=== PATIENT | male | born 1945 | race Caucasian/White ===

== ENCOUNTER 2023-07-07 09:44 | Observation (INO) ==
--- NOTE | 2023-06-16 13:41 | PAT Medication Instructions ---
Medication Instructions Date of Service June 16, 2023 Home Medications allopurinol 100 mg tablet 100 mg PO QAM amlodipine 10 mg tablet 10 mg PO QAM aspirin 81 mg capsule 81 mg PO QAM atorvastatin 40 mg tablet 40 mg PO QAM cholecalciferol (vitamin D3) 25 mcg (1,000 unit) capsule (Vitamin D3) 25 mcg PO QAM clopidogrel 75 mg tablet (Plavix) 75 mg PO QAM finasteride 5 mg tablet 5 mg PO QAM metoprolol succinate 25 mg tablet,extended release 24 hr 25 mg PO QAM pantoprazole 40 mg tablet,delayed release 40 mg PO QAM MEDICATION INSTRUCTIONS: ASK your prescriber and surgeon clopidogrel 75 mg tablet (Plavix) 75 mg PO QAM (for spinal anesthesia: will need to hold Plavix/clopidogrel for at least 7 days prior to surgery) aspirin 81 mg capsule 81 mg PO QAM DO NOT take the morning of surgery cholecalciferol (vitamin D3) 25 mcg (1,000 unit) capsule (Vitamin D3) 25 mcg PO QAM Take morning of surgery With a small sip of water, OTHERWISE NOTHING TO EAT OR DRINK AFTER MIDNIGHT: finasteride 5 mg tablet 5 mg PO QAM metoprolol succinate 25 mg tablet,extended release 24 hr 25 mg PO QAM atorvastatin 40 mg tablet 40 mg PO QAM allopurinol 100 mg tablet 100 mg PO QAM amlodipine 10 mg tablet 10 mg PO QAM pantoprazole 40 mg tablet,delayed release 40 mg PO QAM Other Notes If you have any questions please call us at [phone] or [phone] or [phone] or [phone]
--- NOTE | 2023-06-22 08:58 | Anesthesiology Consultation ---
Date of Service June 22, 2023 Assessment & Plan (1) Encounter for pre-operative examination: - AAA imaging 2020 [facility] (pt plans to repeat testing 11/2023 prior to next cardiology appt) and will request [facility] 06/19/23 cardiology pre-operative appointment. - Patient and his expressed concerns after dalia-operative risks were discussed at cardiology appointment 06/19/23. Discussion with anesthesiologist was offered and they expressed interest. Dr. Charlton saw patient and his in PAT and discussed their concerns including medical history and anesthesia bradycardia and hypotension, he advised patient and his that he feels patient is acceptable to proceed with surgery. They indicated appreciation for his consultation and comfort in moving forward with the remaining visit with myself. - difficult IV stick. - medical clearance 06/09/23: "...pre-op clearance for left TKA...medically stable and cleared for surgery..." - anesthesia complications: bradycardia and hypotension during cystoscopy felt to be medication related per cardiology records, slow to wake with most procedures. - cardiology office note 12/22/22: "...follow up of coronary artery disease...feeling well...controlled since last visit. Recently reduced metoprolol succinate due to bradycardia...07/2019 bradycardia (30s) and hypotension post urologic procedure, asymptomatic, felt to be r/t medications administered for the procedure...08/2019 Holter: sinus rhythm, pauses/block, rare PAC and PVC, brief SVT...continues on ASA and Plavix due to the nature of the coronary disease and multiple stents..." - Outpatient joint assessment: Patient is currently scheduled for inpatient pathway. If re-evaluated and patient/surgeon requests outpatient pathway, patient is not recommended candidate for outpatient joint program from anesthesia standpoint. Chart Review Chart Review: Pending: Refer to Additional Notes / Consult section and Patient seen in Pre Admission Testing Teaching & Discussion Pre-Anesthesia Teaching/Discussion Notes: Instructed NPO after midnight before surgery, except medications with 15 cc of water. Medication instructions provided according to the PAT guidelines. History Surgery Operation Date: 07/07/23 10:45 Proposed Procedures p Left Total Knee Arthroplasty - Martín Watson DO Height/Weight Height: 5 ft 7 in Weight: 124.7 kg Allergies Allergy/AdvReac Type Severity Reaction Status Date / Time No Known Allergies Allergy Verified 06/15/23 11:47 Medications Home Medications Medication Instructions Recorded Confirmed Last Taken allopurinol 100 mg tablet 100 mg PO QAM 06/15/23 06/15/23 Unknown amlodipine 10 mg tablet 10 mg PO QAM 06/15/23 06/15/23 Unknown aspirin 81 mg capsule 81 mg PO QAM 06/15/23 06/15/23 Unknown atorvastatin 40 mg tablet 40 mg PO QAM 06/15/23 06/15/23 Unknown cholecalciferol (vitamin D3) 25 25 mcg PO QAM 06/15/23 06/15/23 Unknown mcg (1,000 unit) capsule (Vitamin D3) clopidogrel 75 mg tablet (Plavix) 75 mg PO QAM 06/15/23 06/15/23 Unknown finasteride 5 mg tablet 5 mg PO QAM 06/15/23 06/15/23 Unknown metoprolol succinate 25 mg 25 mg PO QAM 06/15/23 06/15/23 Unknown tablet,extended release 24 hr pantoprazole 40 mg tablet,delayed 40 mg PO QAM 06/15/23 06/15/23 Unknown release Past Medical History Medical History Abdominal aortic aneurysm listed in cardiology records BPH (benign prostatic hyperplasia) Bradycardia follows with [facility] CAD (coronary artery disease) 2018- stents x4 Follows with Dr Willett ([facility]) GERD (gastroesophageal reflux disease) controlled, stable per pt Gout No recent flares Hyperlipidemia Hypertension controlled, stable per pt Macular degeneration of left eye Sleep apnea Non-compliant with CPAP Vertigo occasional, stable per pt and his Patient denies h/o stroke, seizures, heart failure, DM, blood clots/DVTs or blood transfusions. Exercise / Class Metabolic Activity II 4-5 Yardwork/Stairs/Walk up hill (denies chest discomfort, shortness of breath, dizziness or lightheadedness with activities push mowing lawn/walking up hills) Past Family History Family History Other No family history of adverse response to anesthesia Past Surgical History Surgical History History of anesthesia reaction Slow to wake up-denies unanticipated extended intubation or re-intubation, bradycardia and hypotension during cystoscopy History of appendectomy History of cardiac cath 2018- stents x4 ~2021 ([facility])- no stents History of cataract surgery Left History of cholecystectomy History of colonoscopy History of cystoscopy bradycardia and hypotension History of tonsillectomy Past Anesthesia History No Family Hx of Anesthesia Complications and Other (Slow to wake up-denies unanticipated extended intubation or re-intubation, bradycardia and hypotension during cystoscopy) History of PONV No Hx of PONV and No Hx of Motion Sickness Social History Smoking Status: Never smoker Do You Dip or Chew Tobacco: No Hx Alcohol Use: No Hx Substance Use: No substance use type: does not use Review of Systems Patient denies chest pain, shortness of breath, dyspnea on exertion, fever, chills, cough, wheezing, or palpitations. Physical Exam Vital Signs Vitals BP 130/81 P 50 TEMP 97.9 SP02 94% on RA RESP 18 Physical Patient resting comfortably in chair in no acute distress, alert and oriented, responding appropriately throughout visit Full cervical extension range of motion without pain TMD 3.5 finger breadths Mallampati Score 2 Dentition: intact, denies chipped or loose teeth, caps/crowns, implants or bridges Lungs: normal respiratory effort. Good air movement, clear throughout to auscultation, no adventitious breath sounds Cardiac: bradycardia, regular rhythm, no murmurs noted Carotid arteries: negative bruit bilat Lab Results Anesthesia Preop Results Results Anesthesia Widget: WBC 5.73 K/ul (4.8-10.8) 06/22/23 Hgb 14.4 g/dl (14.0-18.0) 06/22/23 Hct 41.5 % (42.0-52.0) L 06/22/23 Plt 187 K/uL (130-400) 06/22/23 PT 10.8 Seconds (9.0-12.0) 06/22/23 PTT 31.7 Seconds (21.0-31.0) H 06/22/23 INR 1.0 (0.9-1.1) 06/22/23 HA1c 6.0 % (4.5-5.6) H 06/22/23 Urine Color Dark Yellow 06/22/23 Urine Appearance Clear (Clear) 06/22/23 Urine pH 5.5 (4.5-7.5) 06/22/23 Urine Specific [place] 1.019 (1.000-1.030) 06/22/23 Urine Protein Trace (Negative) H 06/22/23 Urine Glucose (UA) Negative (Negative) 06/22/23 Urine Ketones Negative (Negative) 06/22/23 Urine Blood Negative (Negative) 06/22/23 Urine Nitrite Negative (Negative) 06/22/23 Urine Bilirubin Negative (Negative) 06/22/23 Urine Urobilinogen Negative (Negative) 06/22/23 Urine Leukocyte Esterase 2+ (Negative) H 06/22/23 Urine WBC (Auto) 10-30 /hpf (0-5) H 06/22/23 Urine RBC (Auto) 0-4 /hpf (0-4) 06/22/23 Urine Hyaline Casts (Auto) 1-5 /lpf (0-5) 06/22/23 Urine Epithelial Cells (Auto) >30 /lpf (0-5) H 06/22/23 Urine Bacteria (Auto) Negative (Negative) 06/22/23 Blood Type O Positive 06/22/23 Antibody Screen NEGATIVE 06/22/23 Testing Laboratory Results 06/03/2023 SODIUM: 136 POTASSIUM: 4.1 CHLORIDE: 106 CO2: 24 BUN: 32 CREATININE: 1.2 GLUCOSE: 107 Electrocardiogram Date: 06/19/23 Marked sinus bradycardia, rate 48 bpm Incomplete RBBB Completed at cardiology office Chest X-Ray Date: 06/22/23 No acute process Eventration of the right hemidiaphragm Echocardiogram Date: 10/18/21 EF 50-55% Mildly dilated LA No regional wall motion abnormalities No significant valvular pathology Stress Test Date: 09/26/21 Lexiscan Cardiolite negative for ischemia Two small fixed defects anteroseptal and inferior wall likely related to artifact EF 41% Pt underwent cardiac catheterization 10/28/21 as noted below Cardiac Catheterization Date: 10/28/21 Left main: no angiographically significant disease LAD: patent stents in the proximal and mid-segment of the vessel and patent stents in the proximal and mid-segment of the diagonal LCx: occluded proximally after the takeoff of an obtuse marginal RCA: 40% proximal calcified lesion, one small PLB has a proximal 80% lesion Patent stents in the left anterior descending and the diagonal RCA proximal 40% RCA-IFR 0.95 thereby signifying no compromise Occluded left circumflex and a proximal 80% lesion of a small posterior lateral branch, unchanged from before Shall up titrate medications and follow the patient in the outpatient setting after an echocardiogram
--- NOTE | 2023-06-23 08:07 | History & Physical Report ---
Date of Service June 23, 2023 date of surgery: 07/07/23 Procedure: Left Total Knee Arthroplasty Surgeon: Martín Watson Assessment & Plan (1) Arthritis of knee, left: Plan: Patient having increased pain in his left knee, he is undergone viscosupplementation and cortisone injection times had numerous rounds with minimal relief pain is now affecting his daily activities including walking standing using stairs. X-rays show advanced degenerative changes to his left knee. This point we will proceed with scheduling for a left total knee arthroplasty, would recommend overnight stay in the hospital with discharge home the following day with home health physical therapy. Will resume Plavix and Aspirin postop, will need cardiac clearance as well as medical clearance from his family physician. He otherwise has no other questions or concerns The risks and benefits have been discussed including, but not limited to, risk of infection, nerve injury, stiffness, loss of motion, failure to improve, etc. Reasonable outcomes and options of treatment were discussed. An explanation of appropriate alternatives to the procedure that may be advantageous were discussed and their risks and benefits, as well as the risks and benefits of not proceeding with treatment. I offered to answer any additional inquiries concerning the treatment involved. All the patient's questions were answered. The patient is agreeable, understanding of the treatment plan and alternatives, and wishes to proceed with the treatment plan. History of Present Illness Chief Complaint: left knee pain Primary Care Provider: Selin Ramirez MD Hank is a 78 year old who complains of left knee pain, presents for pre-op e valuation prior to a left total knee replacement by Dr Watson at [facility]. He complains of pain, decreased range of motion, instability and stiffness. He states that the symptoms have been chronic and non-traumatic. He states that the symptoms occur constantly with intermittent worsening. Currently the patient states that the symptoms are moderate-severe. The pain is described as aching, sharp and throbbing. The symptoms occur continuously. The symptoms are aggravated by ascending stairs, daily activities, first steps while awake walking. Prior NSAIDs include IBU and Aleve. He has been treated with previous cortisone and visco injections in the past without much relief. Allergies Allergy/AdvReac Type Severity Reaction Status Date / Time No Known Allergies Allergy Verified 06/15/23 11:47 Home Medications Medication Instructions Recorded Confirmed Type allopurinol 100 mg tablet 100 mg PO QAM 06/15/23 06/15/23 History amlodipine 10 mg tablet 10 mg PO QA 06/15/23 06/15/23 History aspirin 81 mg capsule 81 mg PO QA 06/15/23 06/15/23 History atorvastatin 40 mg tablet 40 mg PO QAM 06/15/23 06/15/23 History cholecalciferol (vitamin D3) 25 25 mcg PO QAM 06/15/23 06/15/23 History mcg (1,000 unit) capsule (Vitamin D3) clopidogrel 75 mg tablet (Plavix) 75 mg PO QAM 06/15/23 06/15/23 History finasteride 5 mg tablet 5 mg PO QA 06/15/23 06/15/23 History metoprolol succinate 25 mg 25 mg PO QA 06/15/23 06/15/23 History tablet,extended release 24 hr pantoprazole 40 mg tablet,delayed 40 mg PO QA 06/15/23 06/15/23 History release Past Med/Surg History Medical History Abdominal aortic aneurysm listed in cardiology records BPH (benign prostatic hyperplasia) Bradycardia follows with [facility] CAD (coronary artery disease) 2018- stents x4 Follows with Dr Willett ([facility]) GERD (gastroesophageal reflux disease) controlled, stable per pt Gout No recent flares Hyperlipidemia Hypertension controlled, stable per pt Macular degeneration of left eye Sleep apnea Non-compliant with CPAP Vertigo occasional, stable per pt and his Surgical History History of anesthesia reaction Slow to wake up-denies unanticipated extended intubation or re-intubation, bradycardia and hypotension during cystoscopy History of appendectomy History of cardiac cath 2018- stents x4 ~2020 ([facility])- no stents History of cataract surgery Left History of cholecystectomy History of colonoscopy History of cystoscopy bradycardia and hypotension History of tonsillectomy Family History Other No family history of adverse response to anesthesia Social History Smoking Status: Never smoker Second Hand Exposure: No; Do You Dip or Chew Tobacco: No; Hx Alcohol Use: No Hx Substance Use: No Preferred Language: Mongolian Communication Ability: Effective Sweat Box Attendant Required: No Beliefs That Will Affect Care: None Current Living Situation: Spouse Feels Safe at Home: Yes Assistive Devices: Glasses and Hearing Aid - Right Review of Systems Review of Systems: All systems reviewed & are unremarkable except as noted in HPI & below Constitutional: no fever, no chills and no sweats Respiratory: no cough and no dyspnea Cardiovascular: no chest pain, no dyspnea and no orthopnea Gastrointestinal: no abdominal pain, no nausea and no vomiting Musculoskeletal: as per Subjective / HPI Physical Exam Constitutional: WD/WN, vitals as above no acute distress Respiratory: normal respiratory effort, lungs clear to auscultation no respiratory distress, no labored breathing and does not use accessory muscles Cardiovascular: RRR, no murmur, no edema Gastrointestinal (Abdomen): normal bowel sounds, soft, nontender, no hepatosplenomegaly Musculoskeletal: Knee: + knee abnormal to inspection (LEFT KNEE: ), + effusion (+1 effusion), + limited ROM of knee (ROM 0/3/110), + knee ROM with crepitation, + joint line tenderness (medial joint line) and + Benjy's sign positive; no deformity, no skin erythema, no ecchymosis, no valgus laxity, no varus laxity, anterior drawer test negative, Antonio's sign negative and pivot shift test negative Results & Data Results & Data Diagnostic Findings Left Knee X-ray: left knee series confirm advanced degenerative changes to the left knee, greatest medial compartments and patellofemoral joint, showing joint space narrowing, osteophyte formation and subchondral sclerosis. no acute bony pathology noted.
[~2023-07-07 09:44] MED LIST: ACETAMINOPHEN 500 MG TAB PO SCH; BUPIVACAINE 0.5 % 5 MG/1 ML PF 10ML VIAL ONE; CeleBREX 200 MG CAP PO SCH; FAMOTIDINE 20 MG TAB PO SCH; GABAPENTIN 600 MG DOSE PO SCH; LR 500ML BOLUS, THEN 15ML/HR IV SCH; LR 60ML/HR IV SCH; METOCLOPRAMIDE HCL 10 MG TABLET PO SCH; ROPIVACAINE 0.5% 5 MG/ML 30 ML VIAL ONE; ROPIVACAINE 0.5% HCL/PF 150 MG, BUPIVACAINE 0.75% MPF 20 ML, EPINEPHrine 30MG/30ML (OR ... INSTIL SCH; TRANEXAMIC ACID 1,000 MG **IV Intra-op IV SCH; TRANEXAMIC ACID 1,000 MG **IV Pre-op IV SCH
[2023-07-07] MEDS ORDERED: MIDAZOLAM HCL 1 MG/ML 2ML VIAL ONE (10:50)
--- NOTE | 2023-07-07 11:22 | History & Physical Bridge Note ---
Date of Service July 07, 2023 History & Physical Bridge Note I have examined the patient, reviewed the History & Physical and in the interval since the performance of the History & Physical I have noted the following changes of clinical significance: no changes noted
[2023-07-07] MEDS ORDERED: ORTHO JOINT ANESTHETIC ONE (11:59)
[2023-07-07] MEDS ORDERED: PROPOFOL IV EMULSION 10 MG/ML 20 ML VIAL IV ONE ×3 (13:02→13:54)
[2023-07-07] MEDS ORDERED: ONDANSETRON INJ 2 MG/ML 2 ML VIAL ONE (13:02)
[2023-07-07] MEDS ORDERED: ePHEDrine sulfate 50 MG/5 ML SYR ONE (13:14)
[2023-07-07] MEDS ORDERED: PHENYLEPHRINE 100MCG/ML 5ML SYR ONE (13:41)
--- NOTE | 2023-07-07 14:06 | Operative Report ---
Post Operative Report Pre & Post Diagnosis Operation Date: 07/07/23 11:25 Pre-Op Diagnosis: Left Knee Osteoarthritis Post-Op Diagnosis: Left Knee Osteoarthritis I identified the patient and participated in the time-out.: Yes Procedure Operation Date: 07/07/23 11:25 Actual Procedures p Left Total Knee Arthroplasty(Left)Utilizing [facility] patient- matched total knee arthroplasty size femur 6 tibia 5 Poly 9 patella 32 buck Watson DO Surgeon Martín Watson DO Change Management Lead Dwain DUPONT Estimated Blood Loss 5 Findings Consistent with Post-Op Diagnosis Patient presents with severe end-stage DJD varus alignment subchondral sclerosis marginal osteophytes nonresponse to conservative management the above intraoperative findings were noted with large effusion Specimens Bone and cartilage Drains Medium bore Hemovac Anesthesia Type MAC Spinal Regional Complications none Disposition Accompanied Patient To Recovery: No Disposition: Recovery Room Indications Patient presents with ongoing complaints of knee pain status post conservative management with corticosteroid injections viscosupplementation relative rest activity modification patient presents for low left total knee arthroplasty Description of Procedure After proper prepping and draping of the left lower extremity anterior midline incision was made over the region of the extensor extensor mechanism after meticulous hemostasis was obtained and maintained in subcutaneous tissues a medial parapatellar incision was made The patella was subluxed lateralward the medial lateral gutter were cleaned from any hypertrophic synovitis and scar tissue of the distal femoral block was placed and the distal femoral osteotomy cut was made subsequently the chamfers anterior and posterior osteotomy cuts were made utilizing the 4-in-1 block the tibia was subsequently subluxed anteriorward medial and ateral meniscal remnants were excised in their entirety remnants of the anterior and posterior cruciate ligaments were excised in their entirety excellent exposure of the proximal tibia was obtained the tibial osteotomy guide was placed on the proximal tibial osteotomy cut was made once again the knee was irrigated with copious amounts of sterile saline solution the patella was subsequently everted lateralward thickened scar tissue around the patella was removed the patella was subsequently cut utilizing a freehand technique and was drilled prepared for final preparation and placement of patella socially flexion-extension gaps were checked and the equal and symmetric trials were placed to the appropriate femoral and tibial trials with poly-spacer being placed for equal flexion and extension gaps and full range of motion including extension to 0 and flexion to 140 the trial components after having been taken to recovery range of motion was subsequently removed meticulous hemostasis was obtained and maintained subsequently a knee block injection of joint cocktail including ropivacaine 0.5% 150 mg. Bupivacaine 0.5% epinephrine 1-200,030 mL's toradol 30 mg dexamethasone 4 mg ketamine 10 mg clonidine 100 micrograms normal saline solution 30 mg was infiltrated into the soft tissues of the posterior knee medial lateral gutters and periosteal synovium special attention was paid to protect neurovascular structures at all times subsequently trial components having been removed the knee was irrigated with sterile saline solution. debris was removed the proximal tibia was subsequently prepared and was made ready for the placement of the tibial component tibial component was also cemented and tamped into position the femoral component was subsequently placed and cemented in the position the patellar component was subsequently cemented in position because hemostasis once again obtained and maintained wound having been thoroughly irrigated with debridement and debridement lavage was performed as well as a medial parapatellar incision closed with #1 Vicryl in interrupted fashion subcutaneous was closed with #2 Vicryl skin was closed with skin clips. PA-C was necessary for prepping and drapping as well as wound closure of deep fascia Sub cutaneous tissue and skin and was necessary for the case. A sterile compressive dressing was placed patient was taken to recovery in stable condition of report dictated by Walter I attest to the content of the Intraoperative Record and any orders documented therein. Any exceptions are noted below.Due to the complex nature of the procedure, the entire surgery was performed with the operational assistance of Dwain DUPONT. The assistant plant controller, under direct supervision, was involved in the actual performance of all aspects of the surgical procedure including hemostasis, tissue retraction and incision, instrument management, patient positioning, and wound closure. I attest to the content of the Intraoperative Record and any orders documented therein. Any exceptions are noted below.
--- NOTE | 2023-07-07 15:19 | Anesthesiology Progress Note ---
Date of Service July 07, 2023 Subjective Pt had TKA under SAB w sedation. Uneventful course, except pt had frequent and multifocal PVC's during surgery. Discussed w surgeon and agreed to consult cardiology and observe pt in monitored bed post operatively. . Presently, pt in PACU still w residual SAB. He is awake, asymptomatic and VSS. Cardiology evaluation and telemetry admission pending. Physical Exam Vital Signs: Last Vital Signs Temp 36.5 C 07/07/23 14:38 Pulse 63 07/07/23 15:08 Resp 21 07/07/23 15:05 BP 138/75 07/07/23 15:05 Pulse Ox 100 07/07/23 15:05 O2 Del Method Oxymask 07/07/23 15:05 O2 Flow Rate 8 07/07/23 15:05 Results & Data ([facility]) Medications Administered Acetaminophen (Acetaminophen 500 Mg Tab) 1,000 mg PO PREOP LAILA Stop: 07/07/23 18:00 Last Admin: 07/07/23 10:32 Dose: 1,000 mg Documented By: RIAN Celecoxib (Celebrex 200 Mg Cap) 200 mg PO PREOP LAILA Stop: 07/07/23 18:00 Last Admin: 07/07/23 10:32 Dose: 200 mg Documented By: RIAN Famotidine (Famotidine 20 Mg Tab) 20 mg PO PREOP LAILA Stop: 07/07/23 18:00 Last Admin: 07/07/23 10:32 Dose: 20 mg Documented By: RIAN Gabapentin (Gabapentin 600 Mg Dose) 600 mg PO PREOP LAILA Stop: 07/07/23 18:00 Last Admin: 07/07/23 10:32 Dose: 600 mg Documented By: RIAN Cefazolin Sodium (Ancef 3000mg) 72.5 mls @ 130 mls/hr IV PREOP LAILA; Protocol Stop: 07/07/23 18:00 Last Admin: 07/07/23 12:47 Dose: 130 mls/hr Documented By: [id number] Tranexamic Acid (Tranexamic Acid / 0.7% Nacl) 1,000 mg in 100 mls @ 600 mls/hr IV TODAY@0600 LAILA Stop: 07/07/23 18:00 Last Infusion: 07/07/23 12:47 Dose: 0 mls/hr Documented By: [facility] Admin: 07/07/23 12:34 Dose: 600 mls/hr Documented By: [facility] Tranexamic Acid (Tranexamic Acid / 0.7% Nacl) 1,000 mg in 100 mls @ 600 mls/hr IV TODAY@0600 LAILA Stop: 07/07/23 18:00 Last Admin: 07/07/23 14:02 Dose: 600 mls/hr Documented By: [id number] Lactated Ringer's (Lr) 1,000 mls @ 15 mls/hr IV .Q24H LAILA Stop: 07/07/23 18:00 Last Infusion: 07/07/23 12:47 Dose: 0 mls/hr Documented By: [facility] Admin: 07/07/23 10:30 Dose: 15 mls/hr Documented By: RIAN Metoclopramide HCl (Metoclopramide Hcl 10 Mg Tablet) 10 mg PO PREOP LAILA Stop: 07/07/23 18:00 Last Admin: 07/07/23 10:32 Dose: 10 mg Documented By: RIAN
--- NOTE | 2023-07-07 15:41 | Anesthesiology Progress Note ---
Date of Service July 07, 2023 Anesthesia Post Procedure Vital Signs Vital Signs: Temp Pulse Pulse Pulse Resp BP BP 07/07/23 15:25 97.2 F L 69 16 141/91 H 07/07/23 15:15 68 12 130/80 07/07/23 15:08 63 07/07/23 15:05 78 21 138/75 07/07/23 14:55 71 22 131/92 07/07/23 14:45 74 16 123/67 07/07/23 14:38 97.7 F 86 16 124/81 07/07/23 10:10 98.1 F 56 L 18 155/76 H Pulse Ox O2 Del Method O2 Flow Rate 07/07/23 15:25 98 Nasal Cannula 2 07/07/23 15:15 99 Nasal Cannula 2 07/07/23 15:08 07/07/23 15:05 100 Oxymask 8 07/07/23 14:55 99 Oxymask 8 07/07/23 14:45 100 Oxymask 8 07/07/23 14:38 99 Oxymask 8 07/07/23 10:10 97 Room Air Pain Intensity Left Knee: Pain Intensity: 4 Transfer of Care Handoff Completed per policy Notes Mental Status: alert / awake / arousable and participated in evaluation Patient Amnestic to Procedure: Yes Nausea / Vomiting: adequately controlled Pain: adequately controlled Airway Patency, RR, SpO2: stable & adequate BP & HR: stable & adequate Hydration State: stable & adequate Neuraxial Anesthesia: was administered and sensory block is resolving Anesthetic Complications: no major complications apparent and Pt Satisfied with anesthetic care
[2023-07-07] MEDS ORDERED: NALOXONE HCL 0.4 MG/1 ML VIAL/CARP IV PRN (16:47)
[2023-07-07] MEDS ORDERED: diphenhydrAMINE 50 MG/ML VIAL IV PRN (16:47)
[2023-07-07] MEDS ORDERED: bisacodyL 10 MG SUPP PR PRN (16:47)
[2023-07-07] MEDS ORDERED: oxyCODONE HCL IR 5 MG TAB (IMMEDIATE RELEASE) PO PRN (16:47)
[2023-07-07] MEDS ORDERED: ONDANSETRON INJ 2 MG/ML 2 ML VIAL IV PRN (16:47)
[2023-07-07] MEDS ORDERED: HYDROmorphone INJ 0.5 MG/0.5 ML SYR IV PRN (16:47)
[2023-07-07] MEDS ORDERED: MAGNESIUM HYDROXIDE SUSP 30 ML UDC PO PRN (16:47)
--- NOTE | 2023-07-07 17:06 | XRay Report ---
XR knee LT 1 or 2V routine HISTORY: 78 years-old Male Surgical Post Op left knee arthroplasty COMPARISON: None TECHNIQUE: 3 views of the left knee FINDINGS: Total joint arthroplasty with patellar resurfacing. Anterior midline skin manny with expected posto perative soft tissue swelling and deep tissue air. Surgical drainage catheter. No acute fracture or d islocation. IMPRESSION: Total joint arthroplasty with expected postoperative changes. ACT 112: Negative or not required by law. The above report was generated using voice recognition software. It may contain grammatical, syntax o r spelling errors. Electronically signed by: Mayo Bhatt M.D. 07/07/2023 5:05 PM
[2023-07-07] MEDS: SODIUM CHLORIDE 0.9% 1,000 ML IV SCH (17:30)
--- NOTE | 2023-07-07 17:53 | Electrocardiogram Report ---
Test Reason : Blood Pressure : / mmHG Vent. Rate : 063 BPM Atrial Rate : 166 BPM P-R Int : 178 ms QRS Dur : 132 ms QT Int : 458 ms P-R-T Axes : 019 -34 010 degrees QTc Int : 468 ms Sinus tachycardia with Blocked Premature atrial complexes with Premature supraventricular complexes Left axis deviation Right bundle branch block Abnormal ECG No previous ECGs available Confirmed by Azar Mahan ([id number]) on 07/07/2023 5:52:44 PM Referred By: Martín Watson Confirmed By:Azar Mahan
--- NOTE | 2023-07-07 18:19 | Cardiology Consultation ---
Date of Consultation July 07, 2023 Assessment & Plan (1) Ventricular ectopy: (2) CAD (coronary artery disease): (3) History of placement of stent in LAD coronary artery: (4) Status post left knee replacement: Plan 78-year-old man with CAD status post remote LAD stenting noted to have frequent ventricular ectopy intraoperatively while undergoing knee replacement. Fortunately, he has no symptoms or ECG findings to suggest ongoing myocardial ischemia. Would recommend checking electrolytes including magnesium (ordered) as well as serial troponins (tonight and tomorrow, also ordered) to further evaluate. Continue clopidogrel and metoprolol, would add aspirin 81 mg daily back when able. Dr. Busch will be rounding in the morning, I will ask him to follow-up with any further recommendations. History of Present Illness Reason for Consultation: Frequent Runs of PVC's in OR worsening over time Requesting Physician: Martín Watson DO Attending Physician: Martín Watson DO History of Present Illness 78-year-old man with CAD (2018 LAD stenting x 3, cath 2021 with patent LAD and diagonal stents, occluded circumflex, 80% small PLB), echo EF 55-60%, obstructive sleep apnea (uses CPAP), who underwent left total knee arthroplasty today and was noted to have frequent and progressive PVCs intraoperatively. His preoperative cardiology evaluation letter from [facility] notes that previous mobile cardiac telemetry showed sinus rhythm and only rare ectopy with a few beat runs of SVT. He did have a 45 beat run of presumed ventricular tachycardia at the time of a dobutamine stress echocardiogram prior to his LAD stenting. Telemetry since he arrived in his room ([id number]) has shown consistently sinus rhythm with sporadic PVCs but no couplets or runs. Patient is seen postoperatively in his room, he remains somnolent but awakens and answers questions. He denies any chest pain, dyspnea, subjective palpitations, or any other somatic complaints. Allergies Allergy/AdvReac Type Severity Reaction Status Date / Time No Known Allergies Allergy Verified 06/15/23 11:47 Home Medications Medication Instructions Recorded Confirmed Type allopurinol 100 mg tablet 100 mg PO QAM 06/15/23 07/07/23 History amlodipine 10 mg tablet 10 mg PO QAM 06/15/23 07/07/23 History aspirin 81 mg capsule 81 mg PO QAM 06/15/23 07/07/23 History atorvastatin 40 mg tablet 40 mg PO QAM 06/15/23 07/07/23 History cholecalciferol (vitamin D3) 25 25 mcg PO QAM 06/15/23 07/07/23 History mcg (1,000 unit) capsule (Vitamin D3) clopidogrel 75 mg tablet (Plavix) 75 mg PO QAM 06/15/23 07/07/23 History finasteride 5 mg tablet 5 mg PO QAM 06/15/23 07/07/23 History metoprolol succinate 25 mg 25 mg PO QAM 06/15/23 07/07/23 History tablet,extended release 24 hr pantoprazole 40 mg tablet,delayed 40 mg PO QAM 06/15/23 07/07/23 History release Patient History Medical History (Updated 07/07/23 @ 18:17 by Azar Mahan MD) Abdominal aortic aneurysm listed in cardiology records BPH (benign prostatic hyperplasia) Bradycardia follows with [facility] CAD (coronary artery disease) 2018- stents x4 Follows with Dr Willett ([facility]) GERD (gastroesophageal reflux disease) controlled, stable per pt Gout No recent flares Hyperlipidemia Hypertension controlled, stable per pt Macular degeneration of left eye Sleep apnea Non-compliant with CPAP Vertigo occasional, stable per pt and his Surgical History (Updated 07/07/23 @ 18:19 by Azar Mahan MD) History of anesthesia reaction Slow to wake up-denies unanticipated extended intubation or re-intubation, bradycardia and hypotension during cystoscopy History of appendectomy History of cardiac cath 2018- stents x4 ~202 ([facility])- no stents History of cataract surgery Left History of cholecystectomy History of colonoscopy History of cystoscopy bradycardia and hypotension History of tonsillectomy Family History Other No family history of adverse response to anesthesia Social History Smoking Status: Never smoker Second Hand Exposure: No; Do You Dip or Chew Tobacco: No; Tobacco Cessation Education Requested by Patient: No Hx Alcohol Use: No Hx Substance Use: No Preferred Language: Lao Communication Ability: Effective Television Production Technician Required: No Beliefs That Will Affect Care: None Current Living Situation: Spouse Other Information That Helps Us Care for You: No Feels Safe at Home: Yes Safety Concerns: Feels Safe At This Time Assistive Devices: Glasses Assistive Devices Comment: does not wear hearing aide regularly Physical Exam Physical Exam: No distress. BP normotensive. Pulse 8070 bpm and regular. Skin: no ecchymoses or generalized lesions. HEENT: unremarkable. Neck: JVP at the clavicle at 90 degrees, no carotid bruits. Lungs: clear. Cardiac: regular rhythm with sporadic ectopy, normal S1-2, no murmur. Abdomen: benign. Extremities: no edema, pulses intact distally. Neurologic: Somnolent but arousable affect, normal conversation, nonfocal. Results & Data Diagnostic Findings ECG postoperatively showed sinus tachycardia with PACs/blocked PACs, right bundle branch block, left axis deviation. No ST deviation or T wave abnormalities. No previous ECG for comparison. Preop chest x-ray unremarkable. Echocardiogram 2021 showed EF 50 to 55% with mildly dilated left atrium, otherwise unremarkable. PG Care Time/CCT Total # of Minutes Spent Total Time Spent with Patient: Total time spent is greater than 50% in coordination of care (as documented) at patient's floor/unit and/or counseling patient: Coding Level of Care Code 34393 INT INP/OBS CARE 2MIN Diagnoses Ventricular ectopy I49.3 CAD (coronary artery disease) I25.10 History of placement of stent in LAD coronary artery Z95.5 Status post left knee replacement Z96.652
[2023-07-07 20:06] LABS: BUN Creatinine Ratio 24.5 (10-20); Calcium 9.1 mg/dl (8.6-10.3); Creatinine Clr Calc Pharmacy 79.6 ml/min; Est GFR (African American) 85.8 ml/min; Est GFR (Non-African American) 74.1 ml/min; Magnesium 1.9 mg/dl (1.7-2.4); Potassium 3.7 mmol/L (3.5-5.1)
[2023-07-07 20:13] LABS: Troponin I High Sensitivity 5.2 pg/ml (0-20)
[2023-07-07] MEDS ORDERED: SENNA 8.6 MG TAB PO SCH (21:00)
[2023-07-07] MEDS: ACETAMINOPHEN 500 MG TAB PO SCH (21:13)
[2023-07-07] MEDS: DOCUSATE SODIUM 100 MG CAP PO SCH (21:13)
[2023-07-07] MEDS: ceFAZolin 2000MG 2,000 MG/15 ML SYR IV SCH (23:49)
[2023-07-08] MEDS: SODIUM CHLORIDE 0.9% 1,000 ML IV SCH (03:12)
[2023-07-08] MEDS: ACETAMINOPHEN 500 MG TAB PO SCH ×2 (05:52→13:12)
[2023-07-08] MEDS: ceFAZolin 2000MG 2,000 MG/15 ML SYR IV SCH (05:54)
--- NOTE | 2023-07-08 07:28 | Orthopedic Progress Note ---
Date of Service July 08, 2023 Assessment & Plan (1) Arthritis of knee, left: Plan: POD 1 s/p Left TKA Med/Tele for monitoring due to increased PVC activity during surgery. (See Cardiology Consult) PT/OT - WBAT DVT prophylaxis - Plavix daily, ASA bid for 30 days. SCD's, AIXA's DC planning - Home with outpt PT. Pt would like to speak to CM concerning this. Lab values pending. Plan for dc home today if ok per Cards/Med service; lab eval and progression with PT. Admission and Anticipated Discharge Date Admission Date: July 07, 2023 Subjective POD 1 Pt awake,alert. No complaints. Denies SOB, CP, LH. Pain controlled. Pt hoping to go home today. Physical Exam Physical Exam: Dressings C/D/I. Calves soft,NT. NV intact. Toes mobile. Pt has good DF/PF of the left foot. Minimal hemovac drainage currently. Results & Data Vital Signs (Past 12 Hours) Vital Signs Temp Pulse Pulse Resp BP Pulse Ox O2 Del Method 07/08/23 03:25 36.4 C L 64 20 127/76 96 Room Air 07/07/23 22:08 71 07/07/23 22:00 36.4 C L 58 L 20 124/71 94 Room Air
[2023-07-08] MEDS ORDERED: INFLUENZA VACCINE HIGH-DOSE (HD-IIV4) PF 65+ 0.7mL SYR IM ONE (08:00)
[2023-07-08 08:01] LABS: Hematocrit (blood only) 36.3 % (42.0-52.0); Hemoglobin 12.6 g/dl (14.0-18.0); Mean Corpuscular Hemoglobin 31.5 pg (25.0-34.0); Mean Corpuscular Hgb Conc 34.7 g/dL (32.0-36.0); Mean Corpuscular Volume 90.8 fL (80.0-100.0); Platelet Count 188 K/uL (130-400); RDW Coefficient of Variation 12.7 % (11.5-14.5); RDW Standard Deviation 42.5 fL (36.4-46.3); White Blood Count 9.78 K/ul (4.8-10.8)
[2023-07-08 08:16] LABS: BUN Creatinine Ratio 24.5 (10-20); Calcium 8.5 mg/dl (8.6-10.3); Creatinine Clr Calc Pharmacy 73.6 ml/min; Est GFR (African American) 78.1 ml/min; Est GFR (Non-African American) 67.4 ml/min
[2023-07-08] MEDS ORDERED: PANTOprazole 40 MG TAB PO SCH (09:00)
[2023-07-08] MEDS ORDERED: METOPROLOL SUCC 25MG EXT REL TAB PO SCH (09:00)
[2023-07-08] MEDS ORDERED: amLODIPine BESYLATE 5 MG TAB PO SCH (09:00)
[2023-07-08] MEDS ORDERED: MULTIVITAMIN TAB PO SCH (09:00)
[2023-07-08] MEDS ORDERED: ATORVASTATIN 40 MG TAB PO SCH (09:00)
[2023-07-08] MEDS ORDERED: allopurinoL 100 MG TAB PO SCH (09:00)
[2023-07-08] MEDS ORDERED: FINASTERIDE 5 MG TAB PO SCH (09:00)
[2023-07-08] MEDS ORDERED: CHOLECALCIFEROL 1,000 UNITS 25 MCG TAB PO SCH (09:00)
[2023-07-08] MEDS ORDERED: ASPIRIN 81 MG ECTAB PO SCH (09:00)
[2023-07-08] MEDS ORDERED: CLOPIDOGREL BISULFATE 75 MG TAB PO SCH (09:00)
[2023-07-08] MEDS: DOCUSATE SODIUM 100 MG CAP PO SCH (09:57)
--- NOTE | 2023-07-08 14:54 | Cardiology Progress Note ---
Date of Service July 08, 2023 Assessment & Plan (1) Ventricular ectopy: (2) CAD (coronary artery disease): (3) History of placement of stent in LAD coronary artery: (4) Status post left knee replacement: Plan 1. Ventricular ectopy: He has not had an inordinate amount of ventricular ectopy on monitoring and no significant runs of ventricular arrhythmias. 2. Coronary artery disease: Clinically he has had no ischemic symptoms and his troponin was negative x2. 3. Dizziness: He has a history of dizziness and that occurred while he was in the hospital and was associated with bradycardia and a heart rate in the 30s with some junctional rhythms. I suspect his dizziness is due to sinus node dysfunction and he may well need a pacemaker, this was however on metoprolol succinate 25 mg daily which I am going to discontinue. I suggested to him and his family, who were present in the room, that he should probably have outpatient monitoring performed and may well need a pacemaker. I am not sure a 30-day monitor would be sufficient and he may need a loop recorder since these episodes are somewhat infrequent although might be picked up on a 30-day monitor. 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 4. Knee replacement: He has been up and around and is stable for discharge from that standpoint. Admission and Anticipated Discharge Date Admission Date: July 07, 2023 Subjective Chart reviewed, patient interviewed along with his family in the room. From the cardiovascular standpoint he has been doing relatively well however he did have an episode of bradycardia where his heart rate dropped to the low 30s for several minutes with a junctional rhythm briefly, this occurred while standing and he had some dizziness and sat down. It sounds as though he has had similar episodes in the past, it is hard to tell the precise frequency. This occurred the first time he stood up in the postoperative period here so that could be related. He did have his metoprolol reduced from 25 milligrams to 12.5 mg several weeks ago due to bradycardia, although it looks like he was getting 25 mg daily here. Other than that he is doing well. Physical Exam Physical Exam: Constitutional: Alert, cooperative and in no distress. Pulmonary: Clear to auscultation bilaterally. Cardiac: Regular somewhat slow rhythm with no murmur, gallop or rub. Abdomen: Soft, nontender with normal bowel sounds. Extremities: No edema. Left knee in a brace Skin: No rash, ecchymoses or petechiae. Results & Data Vital Signs (Past 12 Hours) Vital Signs Temp Pulse Pulse Resp BP Pulse Ox O2 Del Method 07/08/23 11:46 36.6 C 67 16 168/74 H 96 Room Air 07/08/23 09:38 38 L 07/08/23 08:00 63 07/08/23 09:47 66 132/77 07/08/23 07:41 36.7 C 65 16 135/79 96 Room Air 07/08/23 03:25 36.4 C L 64 20 127/76 96 Room Air Laboratory Results Cardiac Enzymes 07/07/23 07/08/23 Range/Units 19:21 07:18 Troponin I High Sens 5.2 5.4 (0-20) pg/ml CBC 07/08/23 Range/Units 07:18 WBC 9.78 (4.8-10.8) K/ul RBC 4.00 L (4.70-6.10) M/uL Hgb 12.6 L (14.0-18.0) g/dl Hct 36.3 L (42.0-52.0) % Plt Count 188 (130-400) K/uL Comprehensive Metabolic Panel 07/07/23 07/08/23 Range/Units 19:21 07:18 Sodium 137 137 (136-145) mmol/L Potassium 3.7 4.0 (3.5-5.1) mmol/L Chloride 106 108 H (98-107) mmol/L Carbon Dioxide 26 25 (21-32) mmol/L BUN 24 H 26 H (6-23) mg/dl Creatinine 0.98 1.06 (0.6-1.4) mg/dl Glucose 153 H 127 H (70-99(Fasting)) mg/dl Calcium 9.1 8.5 L (8.6-10.3) mg/dl Intake and Output 07/07/23 07/08/23 07/08/23 22:59 06:59 14:59 Intake Total 1472.5 / 2722.5 1150 / 2722.5 640 / 640 Output Total 1315 / 1315 90 / 90 Balance 157.5 / 1407.5 1150 / 1407.5 550 / 550 Intake: IV 172.5 / 1272.5 1000 / 1272.5 640 / 640 Sodium Chloride 0.9% 1,000 ml @ 1000 / 1000 640 / 640 100 mls/hr IV .Q10H [facility] Rx#: [id number] Tranexamic Acid / 0.7% NaCl 1, 100 / 100 000 mg In 100 ml @ 600 mls/hr IV TODAY@0600 [facility] Rx#:[id number] ceFAZolin 3000MG 72.5 ml @ 130 72.5 / 72.5 mls/hr IV PREOP [facility] Rx#: [id number] IV Perioperative 1000 / 1000 Oral 300 / 450 150 / 450 Output: Urine 1300 / 1300 Estimated Blood Loss 5 / 5 Drain Output Left Knee Hemovac #1 Other: Weight 120.304 kg Weight Measurement Method Last Office Visit Diagnostic Findings Telemetry: For the most part sinus rhythm in the 70s, 1 episode of bradycardia as noted in the HPI which occurred while standing at the bedside. PG Care Time/CCT Total # of Minutes Spent Total Time Spent with Patient: Total time spent is greater than 50% in coordination of care (as documented) at patient's floor/unit and/or counseling patient: Coding Level of Care Code 18331 SUB INP/OBS CARE 2/35MIN Diagnoses Ventricular ectopy I49.3 CAD (coronary artery disease) I25.10 History of placement of stent in LAD coronary artery Z95.5 Status post left knee replacement Z96.652
--- NOTE | 2023-07-10 16:24 | Discharge Summary ---
Date of Service July 10, 2023 Admission HPI Per Admitting Provider Stephanie is a 78 year old who complains of left knee pain, presents for pre-op evaluation prior to a left total knee replacement by Dr Watson at [facility]. He complains of pain, decreased range of motion, instability and stiffness. He states that the symptoms have been chronic and non-traumatic. He states that the symptoms occur constantly with intermittent worsening. Currently the patient states that the symptoms are moderate-severe. The pain is described as aching, sharp and throbbing. The symptoms occur continuously. The symptoms are aggravated by ascending stairs, daily activities, first steps while awake walkin g. Prior NSAIDs include IBU and Aleve. He has been treated with previous cortisone and visco injections in the past without much relief. Admission Exam Per Admitting Provider Physical Exam Constitutional: WD/WN, vitals as above no acute distress Respiratory: normal respiratory effort, lungs clear to auscultation no respiratory distress, no labored breathing and does not use accessory muscles Cardiovascular: RRR, no murmur, no edema Gastrointestinal (Abdomen): normal bowel sounds, soft, nontender, no hepatosplenomegaly Musculoskeletal: Knee: + knee abnormal to inspection (LEFT KNEE: ), + effusion (+1 effusion), + limited ROM of knee (ROM 0/3/110), + knee ROM with crepitation, + joint line tenderness (medial joint line) and + Benjy's sign positive; no deformity, no skin erythema, no ecchymosis, no valgus laxity, no varus laxity, anterior drawer test negative, Antonio's sign negative and pivot shift test negative Principal Diagnosis Left Knee Osteoarthritis Discharge Data Allergies Allergy/AdvReac Type Severity Reaction Status Date / Time No Known Allergies Allergy Verified 06/15/23 11:47 Consultations 07/07/23 14:39 Consult Cardiology Routine Procedures Performed Operation Date: 07/07/23 11:25 Actual Procedures p Left Total Knee Arthroplasty(Left) - Martín Watson DO Ordered Studies 07/07/23 05:00 US - OR guided needle placemen Routine Hospital Course (1) Arthritis of knee, left: Patient:STEPHANIE MOCTEZUMA Admit Date:07/07/23 MR#:[id number] Att Phy:Martín Watson,D.OAndre Acct ID:[id number] Tameka Phy:Selin Ramirez MD Date:1945 [facility] Phy: Age:78 Location:2N Sex:M Room/Bed:[facility] cc: ~ *NOTICE TO RECEIVING REPUBLICAN/AGENCY This information is strictly Confidential and protected under [place] law. [place] law prohibits you from making any further disclosure of this information unless further disclosure is expressly permitted by the written consent of the person to whom it pertains or is authorized by law. A general authorization for the release of medical or other information is not sufficient for this purpose. Hospital accepts no responsibility if the information is made available to any other person, INCLUDING THE PATIENT. Date of Service July 08, 2023 Assessment & Plan (1) Arthritis of knee, left: Plan: POD 1 s/p Left TKA Med/Tele for monitoring due to increased PVC activity during surgery. (See Cardiology Consult) PT/OT - WBAT DVT prophylaxis - Plavix daily, ASA bid for 30 days. SCD's, AIXA's DC planning - Home with outpt PT. Pt would like to speak to CM concerning this. Lab values pending. Plan for dc home today if ok per Cards/Med service; lab eval and progression with PT. Admission and Anticipated Discharge Date Admission Date: July 07, 2023 Subjective POD 1 Pt awake,alert. No complaints. Denies SOB, CP, LH. Pain controlled. Pt hoping to go home today. Physical Exam Physical Exam: Dressings C/D/I. Calves soft,NT. NV intact. Toes mobile. Pt has good DF/PF of the left foot. Minimal hemovac drainage currently. Results & Data Vital Signs (Past 12 Hours) Vital Signs Temp Pulse Pulse Resp BP Pulse Ox O2 Del Method 07/08/23 03:25 36.4 C L 64 20 127/76 96 Room Air 07/07/23 22:08 71 07/07/23 22:00 36.4 C L 58 L 20 124/71 94 Room Air Signed By: <Electronically signed by Martín Watson DO> 07/08/2302 <Electronically signed by Dwain Smith PA-C> 07/08/23 0728 Created:07/08/23 07 The status of this report isSigned. CARDIOLOGY Assessment & Plan (1) Ventricular ectopy: (2) CAD (coronary artery disease): (3) History of placement of stent in LAD coronary artery: (4) Status post left knee replacement: Plan 1. Ventricular ectopy: He has not had an inordinate amount of ventricular ectopy on monitoring and no significant runs of ventricular arrhythmias. 2. Coronary artery disease: Clinically he has had no ischemic symptoms and his troponin was negative x2. 3. Dizziness: He has a history of dizziness and that occurred while he was in the hospital and was associated with bradycardia and a heart rate in the 30s with some junctional rhythms. I suspect his dizziness is due to sinus node dysfunction and he may well need a pacemaker, this was however on metoprolol succinate 25 mg daily which I am going to discontinue. I suggested to him and his family, who were present in the room, that he should probably have outpatient monitoring performed and may well need a pacemaker. I am not sure a 30-day monitor would be sufficient and he may need a loop recorder since these episodes are somewhat infrequent although might be picked up on a 30-day monitor. I have not made those arrangements as he does have a local cardio logist and these are longstanding. 4. Knee replacement: He has been up and around and is stable for discharge from that standpoint. Admission and Anticipated Discharge Date Admission Date: July 07, 2023 Total Time Total Time Spent Total Time Spent (In Minutes): 5 Discharge Plan Discharge Items Patient Disposition: Home - Self-Care Reason For Visit: Left Knee Osteoarthritis Discharge Diagnosis: Left Knee Osteoarthriits Activity: Per Instructions section Weightbearing: Full weightbearing Non-emergency contact: Surgeon Call non-emergency contact if: you have any medication questions, your pain is not controlled, your temperature is above 101.5, your wound has increased redness and your wound has increased drainage Follow-up/Referrals: Martín Watson DO [Surgeon] - (Follow up with Dr Watson in 2 weeks from the day of surgery for your first post operative visit. ) Selin Ramirez MD [Primary Care Provider] - Diet: Regular Addtl Attending Provider Instructions: ACTIVITY RECOMMENDATIONS: SELF CARE INSTRUCTIONS AFTER TOTAL KNEE REPLACEMENT A. You may need to continue a physical therapy program after discharge from the hospital. There are several options available to you. Your doctor will assist you in selecting the best one for you. 1. An out-patient facility 2 to 3 times a week for therapy or home therapy. 2. Continue working on all exercises taught to you in the hospital. Your goals should be to increase bending of your knee to 90 degrees and beyond and to fully straighten your knee. B. You may progress at your own pace from walking with a walker or crutches to a cane; then to no assistive devices. C. Make walking a part of your daily routine. Be up as much as comfortable with rest periods throughout the day. Rest with leg elevation is very important. Use the ice wrap frequently for the first 3-4 weeks. D. There are no restrictions on activities. You may ride in a car, shop, participate in transfusion aide and all social activities. E. Wear the long elastic stockings (AIXA hose) 20 hours a day for 2 weeks after surgery. They can be removed several times a day for laundering and for a bath. F. You may shower, no tub baths until cleared by your doctor. SPECIAL CARE INSTRUCTIONS: VERY IMPORTANT TO READ AND REVIEW A. There are a few signs you need to watch for after you are home. Call [facility] if you notice any of the followin. Increased severe knee pain. Some pain is expected especially when you exercise. 2. Increased swelling in your leg or knee; pain or swelling of the calf muscle in either lower leg. 3. Any fluid drainage from the incision. 4. Shortness of breath or chest pain. B. Please call [facility] at if you have any concerns or questions about your operation or recovery. The doctor or his nurse will return your call promptly. C. You must take antibiotics before dental work, bladder, bowel or other surgery. Your doctor will provide you with a permanent care to carry describing this precaution. IMPORTANT: * REMEMBER TO TAKE ASPIRIN, 81 MG, TWICE DAILY FOR 4 WEEKS UNLESS OTHERWISE DIRECTED. THIS IS YOUR BLOOD THINNER. * CONTINUE YOUR DAILY DOSE OF PLAVIX * CALL IF INCREASED PAIN, REDNESS, DRAINAGE OR FEVER GREATER THAT 101. * WEAR AIXA HOSE 20 HOURS PER DAY FOR 2 WEEKS. * IZAIAH Dressing - This is a large suction dressing covering your incision. This will help pull any excess drainage from the wound and allow your incision to heal properly. You may shower with this if you can keep the unit outside of the shower. If any bleeding or leakage is noted please call your doctor's office. This will remain on your incision for 7 days and then should be removed. This can be done yourself or by the home nursing staff if applicable. The entire unit is disposable once removed. Once removed, keep incision clean and dry. If redness or drainage is noted, please call your surgeon. . FOLLOW UP VISIT: If appointment is not already scheduled: Please call [facility] to make a follow-up appointment for 2 weeks after your surgery at . Stand-Alone Forms: My [facility] [employer], Smoking Cessation Medications and DC Order Prescriptions: New aspirin 81 mg Tablet,Delayed Release (Dr/Ec) 81 mg PO BID 30 Days Qty: 60 0RF acetaminophen [Tylenol Extra Strength] 500 mg Tablet 1,000 mg PO Q8 14 Days Qty: 84 0RF polyethylene glycol 3350 [Miralax] 17 gram powder in packet 17 g PO DAILY PRN (Reason: constipation) Qty: 5 0RF cefadroxil 500 mg capsule 500 mg PO BID Qty: 28 1RF oxycodone 5 mg tablet 5 mg PO Q4H MDD 6 PRN (Reason: pain) Qty: 30 0RF Continued atorvastatin 40 mg Tablet 40 mg PO QAM clopidogrel [Plavix] 75 mg Tablet 75 mg PO QAM allopurinol 100 mg Tablet 100 mg PO QAM amlodipine 10 mg Tablet 10 mg PO QAM pantoprazole 40 mg Tablet,Delayed Release (Dr/Ec) 40 mg PO QAM finasteride 5 mg Tablet 5 mg PO QAM cholecalciferol (vitamin D3) [Vitamin D3] 25 mcg (1,000 unit) Capsule 25 mcg PO QAM Discontinued metoprolol succinate 25 mg Tablet Extended Release 24 Hr 25 mg PO QAM aspirin 81 mg Capsule 81 mg PO QAM Discharge Orders: Discharge Order (Routine); Ordered 07/08/23 Ordered By: Dwain Jones/Other Patient Handouts: RICE Admission Data Admit Date/Time: 07/07/23 13:28 Attending Provider: Martín Watson Admit Provider: Martín Watson Primary Care Provider: Selin Ramirez Other Providers: Azar Mahan ; [place] Other Interventions: Discharge Summary Assessment (RN) Last Done: 07/08/23 15:42
== END 2023-07-08 16:38 | disposition home or self-care (01) ==
LOC: 2N 09:44 → ASU 09:44